=== PATIENT | female | born 1965 ===

== ENCOUNTER 2018-05-07 18:48 | Emergency (ER) | payer MEDICAID, MEDICARE ==
[2018-05-07 18:48] VITALS: BMI 27.4
[2018-05-07] MEDS ORDERED: Sodium Chloride 0.9% 1,000 ML IV STA (20:18)
--- NOTE | 2018-05-07 20:46 | ED PDOC ---
History of Present Illness History of Present Illness: Amelia Valdez is a 53 year old female with a past medical history of hypertension and Lupus who is presenting to the ED for evaluation of sore throat associated with a dry cough, fever, body aches, fatigue and chills onset last night. Patient states that she took leftover amoxicillin with no relief of symptoms and she adds that she has been medicating with Advil for fever. She denies any vomiting or diarrhea and offers no other medical complaints at this time. PMD: Liv Smart HPI: Influenza Time Seen by Provider: 05/07/18 19:57 Chief Complaint: Cough, Cold, Congestion Chief Complaint (Provider): Cough, Cold, Congestion History Per: Patient Exam Limitations: no limitations Onset/Duration Of Symptoms: Days (x1) Symptoms include: fever, bodyaches, sore throat, cough. denies: vomiting, diarrhea Past Medical History Reviewed: Historical Data, Nursing Documentation, Vital Signs Vital Signs: Last Vital Signs Temp 99.6 F 05/07/18 19:20 Pulse 133 H 05/07/18 19:20 Resp 22 05/07/18 19:20 BP 121/76 05/07/18 19:20 Pulse Ox 99 05/07/18 19:20 - Medical History PMH: Anxiety, Arthritis, HTN, Hypercholesterolemia, Rheumatoid Arthritis Other PMH: lupus - Surgical History Surgical History: - Family History Family History: States: Unknown Family Hx - Social History Current smoker - smoking cessation education provided: No Alcohol: None Drugs: Denies - Immunization History Hx Tetanus Toxoid Vaccination: No Hx Influenza Vaccination: Yes (2014) Hx Pneumococcal Vaccination: No - Home Medications Home Medications: Ambulatory Orders Medication Instructions Recorded Cyclobenzaprine [Flexeril] 5 mg PO HS 11/06/15 Diclofenac Sodium [Voltaren] 75 mg PO BID PRN 11/06/15 Ergocalciferol (Vitamin D2) 50,000 iu PO QWK 11/06/15 [Vitamin D] Hydroxychloroquine Sulfate 200 mg PO BID 11/06/15 [Plaquenil] Losartan/Hydrochlorothiazide 1 tab PO DAILY 11/06/15 [Losartan Potassium-Hydrochlorothiazide 12.5 M] Meclizine [Antivert] 25 mg PO TID 11/06/15 Methotrexate 11/06/15 Nitrofurantoin Monohyd/M-Cryst 100 mg PO Q12 11/06/15 [Nitrofurantoin Monohydrate/Macrocrystals] Paroxetine HCl 10 mg PO DAILY 11/06/15 Acetaminophen [Tylenol Extra 1,000 mg PO Q6 PRN #100 tablet 05/07/18 Strength] Cephalexin [cephalexin] 500 mg PO BID #20 cap 05/07/18 - Allergies Allergies/Adverse Reactions: Allergies Allergy/AdvReac Type Severity Reaction Status Date / Time aspirin Allergy SWELLING Verified 05/07/18 19:19 Review of Systems ROS Statement: Except As Marked, All Systems Reviewed And Found Negative Constitutional: Positive for: Fever, Chills, Other (body aches) ENT: Positive for: Throat Pain Respiratory: Positive for: Cough Gastrointestinal: Negative for: Vomiting, Diarrhea Physical Exam - Reviewed Nursing Documentation Reviewed: Yes Vital Signs Reviewed: Yes - Physical Exam Appears: Positive for: In Acute Distress (mild painful). Negative for: Well ((+) tired appearing ) Head Exam: Positive for: ATRAUMATIC, NORMOCEPHALIC Skin: Positive for: Warm, Dry Eye Exam: Positive for: EOMI, PERRL ENT: Positive for: TM Is/Are (normal), Tonsillar Exudate (bilateral erythematous tonsils with exudates to right tonsil), Other (dry mucous membranes; submandibular lymphadenopathy) Neck: Positive for: Painless ROM, Supple, Trachea Midline Cardiovascular/Chest: Positive for: Tachycardia. Negative for: Murmur Respiratory: Positive for: Normal Breath Sounds. Negative for: Accessory Muscle Use, Wheezing, Respiratory Distress Gastrointestinal/Abdominal: Positive for: Soft. Negative for: Tenderness Back: Positive for: Normal Inspection. Negative for: Decreased ROM Extremity: Positive for: Normal ROM. Negative for: Deformity Lymphatic: Negative for: Adenopathy Neurologic/Psych: Positive for: Alert. Negative for: Motor/Sensory Deficits Medical Decision Making Medical Decision Making: Time: 20:18 Impression: URI Differentials: pharyngitis, viral syndrome, flu, strep throat, pneumonia, dehydration, sepsis Plan: --CMP --Lact Acid --CBC --Chest x-ray --IV Fluids --Toradol 15 mg IVP --Tylenol 975 mg PO --Blood culture --Influenza --Rapid Strep Labs demonstrate leukocytosis and bandemia, and lactic acid level normal. Rocephin and decadron ordered Stable for dc after meds. Advised rest, fluids, f/u PMD 24-48 hours Scribe Attestation: Documented by, Genet Carrero acting as a scribe for Roxana Ly MD. Provider Scribe Attestation: All medical record entries made by the Scribe were at my direction and personally dictated by me. I have reviewed the chart and agree that the record accurately reflects my personal performance of the history, physical exam, medical decision making, and the department course for this patient. I have also personally directed, reviewed, and agree with the discharge instructions and disposition. - Laboratory Results Result Diagrams: 05/07/18 20:40 05/07/18 20:40 - ECG O2 Sat by Pulse Oximetry: 99 (RA) Pulse Ox Interpretation: Normal Disposition - Clinical Impression Clinical Impression: Tonsillitis - Disposition Referrals: Liv Smart MD [Medical Doctor] - 05/08/18 Disposition: Routine/Home Disposition Time: 22:13 Condition: IMPROVED Prescriptions: Acetaminophen [Tylenol Extra Strength] 1,000 mg PO Q6 PRN #100 tablet PRN Reason: FEVER OR PAIN Cephalexin [cephalexin] 500 mg PO BID #20 cap Instructions: Bacterial Upper Respiratory Infection, Adult (DC), Sore Throat, Adult (DC) Forms: [facility] ED School/Work Excuse Print Language: SRI LANKAN
[2018-05-07 20:59] LABS: BASO # 0.1 K/uL (0.0-0.2); BASO % 0.6 % (0.0-2.0); EOS % 0.1 % (0.0-4.0); HEMOGLOBIN 13.3 g/dL (12.0-16.0); LYMPH # 1.2 K/uL (1.0-4.3); LYMPH % 9.4 % (20.0-40.0); MEAN CELL VOLUME 88.1 fl (81.0-99.0); MEAN CORPUSCULAR HEMOGLOBIN 29.1 pg (27.0-31.0); MEAN CORPUSCULAR HGB CONC 33.1 g/dL (33.0-37.0); MEAN PLATELET VOLUME 9.8 fl (7.2-11.7); MONO # 0.6 K/uL (0.0-0.8); MONO % 4.6 % (0.0-10.0); NEUT # 10.9 K/uL (1.8-7.0); NEUT % 85.3 % (50.0-75.0); PLATELET COUNT 317 K/uL (130-400); RBC 4.58 Mil/uL (3.80-5.20); RED CELL DISTRIBUTION WIDTH 14.4 % (11.5-14.5); WHITE BLOOD COUNT 12.8 K/uL (4.8-10.8)
[2018-05-07 21:08] LABS: ALB/GLOB RATIO 1.1 (1.0-2.1); ALBUMIN 4.7 g/dL (3.5-5.0); ALT/SGPT 61 U/L (9-52); AST/SGOT 77 U/L (14-36); BLOOD UREA NITROGEN 12 mg/dl (7-17); CALCIUM 9.6 mg/dL (8.4-10.2); GFR NON-AFRICAN AMERICAN > 60
[2018-05-07 21:40] LABS: ANISOCYTOSIS SLIGHT; BANDS 15 % (0-2); LYMPHOCYTE 9 % (20-50); MONOCYTE 3 % (0-10); NEUTROPHIL 73 % (42-75); OVALOCYTES SLIGHT; PLATELET ESTIMATE NORMAL (NORMAL); POIKILOCYTOSIS SLIGHT; TOTAL CELLS COUNTED 100
[2018-05-07] MEDS ORDERED: cefTRIAXone (Rocephin) 1 gm Inj ONE (21:56)
[2018-05-08 01:51] VITALS: TEMP 98.6
[2018-05-08 01:56] VITALS: BP 118/60; PULSE 72; RESP 16; O2SAT 98
--- NOTE | 2018-05-08 09:34 | RAD ---
Date of service: 05/07/2018 HISTORY: fever cough COMPARISON: Chest radiographs 05/28/2016. TECHNIQUE: Chest PA and lateral FINDINGS: LUNGS: No acute cardiopulmonary disease appreciated. PLEURA: No significant pleural effusion identified. No pneumothorax apparent. CARDIOVASCULAR: No aortic atherosclerotic calcification present. Normal cardiac size. No pulmonary vascular congestion. OSSEOUS STRUCTURES: No significant abnormalities. VISUALIZED UPPER ABDOMEN: Normal. OTHER FINDINGS: None. IMPRESSION: No interval acute cardiopulmonary disease appreciated.
== END 2018-05-07 22:54 | disposition home or self-care (01) ==
LOC: H.ER 18:48
DX: J03.90 Acute tonsillitis, unspecified (principal); J11.1 Influenza due to unidentified influenza virus with other respiratory manifestations; E78.00 Pure hypercholesterolemia, unspecified; M32.9 Systemic lupus erythematosus, unspecified
CPT/HCPCS: 71046; 80053; 83605; 85025; 87040; 87070; 87430; 87804; 96374; 96375; 99283; J0696; J1100; J1885; J7030

== ENCOUNTER 2018-10-16 18:04 | Emergency (ER) | payer MEDICARE ==
[2018-10-16 18:05] VITALS: BMI 27.4
[2018-10-16] MEDS ORDERED: DiphenhydrAMINE 50 mg/ml Inj IVP STA (18:56)
[2018-10-16] MEDS ORDERED: Albuterol-Ipratrop 3 mg / 0.5 (3 ml) UD INH STA (18:56)
[2018-10-16] MEDS ORDERED: DiphenhydrAMINE 50 mg/ml Inj ONE (19:12)
[2018-10-16] MEDS ORDERED: Albuterol-Ipratrop 3 mg / 0.5 (3 ml) UD ONE ×2 (19:13→19:14)
--- NOTE | 2018-10-16 19:13 | ED PDOC ---
HPI: Allergic Reaction Time Seen by Provider: 10/16/18 18:24 Chief Complaint (Nursing): Shortness Of Breath Chief Complaint (Provider): Allergic Reaction History Per: Patient History/Exam Limitations: no limitations Onset/Duration Of Symptoms: Days Current Symptoms Are (Timing): Still Present Additional Complaint(s): 53 y/o female with a PMHx of Asthma, thyroid disorder, lupus and HTN presents to the ED for evaluation of an allergic reaction. Patient reports that for the last month, she has been having intermittent hives that come and go. Patient reports of having seen her PMD and an fiberglass finisher and had been on multiple different medications to treat it. Patient notes hives have been associated with chest tightness and itchy cough since onset. Patient states that over the last day, cough and chest tightness have worsened thus prompting ER visit. Otherwise, anika ent denies any new exposures to foods, lotions, soaps and animals. Patient brought with her her results from the fiberglass finisher that demonstrated no triggers on her blood work. PMD: Liv Smart Past Medical History Reviewed: Historical Data, Nursing Documentation, Vital Signs Vital Signs: Last Vital Signs Temp 98.3 F 10/16/18 18:18 Pulse 87 10/16/18 18:18 Resp 17 10/16/18 18:30 BP 119/78 10/16/18 18:18 Pulse Ox 100 10/16/18 18:30 - Medical History PMH: Anxiety, Arthritis, HTN, Hypercholesterolemia, Rheumatoid Arthritis Other PMH: Thyroid disorder and Lupus - Surgical History Surgical History: (x2) Other surgeries: Hysterectomy - Family History Family History: States: Hypertension - Social History Current smoker - smoking cessation education provided: No - Immunization History Hx Tetanus Toxoid Vaccination: No Hx Influenza Vaccination: Yes (2014) Hx Pneumococcal Vaccination: No - Home Medications Home Medications: Ambulatory Orders Medication Instructions Recorded Cyclobenzaprine [Flexeril] 5 mg PO HS 11/06/15 Diclofenac Sodium [Voltaren] 75 mg PO BID PRN 11/06/15 Ergocalciferol (Vitamin D2) 50,000 iu PO QWK 11/06/15 [Vitamin D] Hydroxychloroquine Sulfate 200 mg PO BID 11/06/15 [Plaquenil] Losartan/Hydrochlorothiazide 1 tab PO DAILY 11/06/15 [Losartan Potassium-Hydrochlorothiazide 12.5 M] Meclizine [Antivert] 25 mg PO TID 11/06/15 Methotrexate 11/06/15 Nitrofurantoin Monohyd/M-Cryst 100 mg PO Q12 11/06/15 [Nitrofurantoin Monohydrate/Macrocrystals] Paroxetine HCl 10 mg PO DAILY 11/06/15 Acetaminophen [Tylenol Extra 1,000 mg PO Q6 PRN #100 tablet 05/07/18 Strength] Cephalexin [cephalexin] 500 mg PO BID #20 cap 05/07/18 DiphenhydrAMINE [Benadryl] 25 mg PO Q6 PRN #30 cap 10/16/18 Famotidine [Pepcid] 40 mg PO DAILY PRN #30 tab 10/16/18 Prednisone 50 mg PO DAILY #4 tablet 10/16/18 - Allergies Allergies/Adverse Reactions: Allergies Allergy/AdvReac Type Severity Reaction Status Date / Time aspirin Allergy SWELLING Verified 10/16/18 18:16 Review of Systems ROS Statement: Except As Marked, All Systems Reviewed And Found Negative (as per HPI) Cardiovascular: Positive for: Other (chest tightness) Respiratory: Positive for: Cough (itchy) Skin: Positive for: Rash (Hives) Physical Exam - Reviewed Nursing Documentation Reviewed: Yes Vital Signs Reviewed: Yes - Physical Exam Appears: Positive for: No Acute Distress Head Exam: Positive for: ATRAUMATIC, NORMOCEPHALIC Skin: Positive for: Warm, Dry, Rash (syl urticarial rash noted on the upper extremities and upper chest) Eye Exam: Positive for: EOMI, PERRL ENT: Positive for: Pharynx Is (clear), Other (dry mucous membrane) Neck: Positive for: Painless ROM, Supple Cardiovascular/Chest: Positive for: Regular Rate, Rhythm. Negative for: Murmur Respiratory: Positive for: Other (paroxysmal cough ). Negative for: Rales, Rhonchi, Wheezing Gastrointestinal/Abdominal: Positive for: Soft. Negative for: Tenderness Back: Positive for: Normal Inspection. Negative for: Decreased ROM Extremity: Negative for: Calf Tenderness, Other (edema) Lymphatic: Negative for: Adenopathy Neurological/Psych: Positive for: Awake, Alert. Negative for: Motor/Sensory Deficits - Laboratory Results Result Diagrams: 10/16/18 19:27 10/16/18 21:23 - ECG ECG: Positive for: Interpreted By Me, Viewed By Me ECG Rhythm: Positive for: Normal ST Segment, Sinus Rhythm, Premature Ventricular Contraction (one) Rate: 94 O2 Sat by Pulse Oximetry: 100 (RA) Pulse Ox Interpretation: Normal - Progress ED Course And Treament: Time: 1855 Impression: Allergic Reaction Plan: -- EKG -- CMP -- Magnesium -- Phosphorus -- Thyroid Stimulating Hormone -- CBC with Differentials -- Benadryl 25 mg IVP -- Duoneb 3mg/0.5mg (3ml) UD 6 ml INH -- Pepcid 40 mg IVP -- SOLU-Medrol 125 mg IVP -- IV Insertion -- Peak Flow Pre/Post Tx 10p Reeval pt feeling better. Rash improved. Stable for dc. Advised continue followup with PMD. Scribe Attestation: Documented by Cassia Rincon, acting as a scribe [place] Ly MD. Provider Scribe Attestation: All medical record entries made by the Scribe were at my direction and personally dictated by me. I have reviewed the chart and agree that the record accurately reflects my personal performance of the history, physical exam, medical decision making, and the department course for this patient. I have also personally directed, reviewed, and agree with the discharge instructions and disposition. Disposition - Clinical Impression Clinical Impression: Allergic reaction Counseled Patient/Family Regarding: Studies Performed, Diagnosis, Need For Followup, Rx Given - Disposition Disposition: Routine/Home Disposition Time: 22:19 Condition: IMPROVED Additional Instructions: VISITA NIXON DOCTOR ESTA [facility] P[facility] [employer]ALU[employer]IONES Prescriptions: DiphenhydrAMINE [Benadryl] 25 mg PO Q6 PRN #30 cap PRN Reason: Allergy Symptoms Famotidine [Pepcid] 40 mg PO DAILY PRN #30 tab PRN Reason: reflux Prednisone 50 mg PO DAILY #4 tablet Instructions: Hives (DC), Asthma, Adult (DC) Print Language: CZECH
[2018-10-16 19:46] LABS: BASO % 0.7 % (0.0-2.0); EOS # 0.1 K/uL (0.0-0.7); EOS % 1.8 % (0.0-4.0); HEMOGLOBIN 12.1 g/dL (12.0-16.0); LYMPH # 2.7 K/uL (1.0-4.3); LYMPH % 38.2 % (20.0-40.0); MEAN CELL VOLUME 88.1 fl (81.0-99.0); MEAN CORPUSCULAR HEMOGLOBIN 29.5 pg (27.0-31.0); MEAN CORPUSCULAR HGB CONC 33.5 g/dL (33.0-37.0); MEAN PLATELET VOLUME 9.4 fl (7.2-11.7); MONO # 0.4 K/uL (0.0-0.8); MONO % 6.1 % (0.0-10.0); NEUT # 3.8 K/uL (1.8-7.0); NEUT % 53.2 % (50.0-75.0); NRBC % 0.2 % (0.0-0.0); RBC 4.1 Mil/uL (3.80-5.20); RED CELL DISTRIBUTION WIDTH 13.4 % (11.5-14.5); WHITE BLOOD COUNT 7.1 K/uL (4.8-10.8)
[2018-10-16 21:44] LABS: ALB/GLOB RATIO 1.2 (1.0-2.1); ALBUMIN 4.2 g/dL (3.5-5.0); ALT/SGPT 23 U/L (9-52); AST/SGOT 20 U/L (14-36); BLOOD UREA NITROGEN 7 mg/dl (7-17); CALCIUM 8.9 mg/dL (8.4-10.2); GFR NON-AFRICAN AMERICAN > 60
[2018-10-16] MEDS ORDERED: Potassium Chloride 20 mEq ER Tab PO STA (21:46)
[2018-10-16] MEDS ORDERED: Potassium Chloride 20 mEq ER Tab PO ONE (22:00)
[2018-10-16 22:57] VITALS: BP 117/77; PULSE 85; RESP 18; TEMP 98.7; O2SAT 98
--- NOTE | 2018-10-17 10:07 | CARD ---
APPROVED REPORT Date of service: 10/16/2018 EKG Measurement Heart [id number] <Conclusion> Sinus rhythm with occasional premature ventricular complexes Prolonged QT Abnormal ECG
== END 2018-10-16 22:55 | disposition home or self-care (01) ==
LOC: H.ER 18:04
DX: T78.40XA Allergy, unspecified, initial encounter (principal); I10 Essential (primary) hypertension; J45.909 Unspecified asthma, uncomplicated; M06.9 Rheumatoid arthritis, unspecified; M32.9 Systemic lupus erythematosus, unspecified; R07.89 Other chest pain; Z79.899 Other long term (current) drug therapy; E07.9 Disorder of thyroid, unspecified
CPT/HCPCS: 80053; 83735; 84100; 84443; 85025; 93005; 94150; 94640; 96374; 96375; 99285; J1200; J2930